=== PATIENT | male | born 1960 | race Two or more races ===

== ENCOUNTER 2016-11-28 13:16 | Inpatient (IN) | payer OTHER, SELFPAY ==
[~2016-11-28] VITALS: Ht 167.6 cm; Wt 86.8 kg
[2016-11-28] MEDS ORDERED: SODIUM CHLORIDE 0.9% 1,000ML IV ONE (14:00)
[2016-11-28] MEDS ORDERED: SODIUM CHLORIDE FLUSH 10ML SYR IVF ONE (14:00)
[2016-11-28 14:23] LABS: HEMATOCRIT 49.6 % (39.2-51.8); HEMOGLOBIN 16.8 g/dL (13.7-18.0); WHITE BLOOD COUNT 13.6 x10^3/uL (3.4-10)
[2016-11-28 14:41] LABS: ASPARTATE AMINO TRANSFERASE 23 U/L (15-37); BLOOD UREA NITROGEN 16 mg/dL (7-18)
[2016-11-28] MEDS ORDERED: MORPHINE SULFATE 4 MG/ML, 1ML ONE (15:29)
[2016-11-28] MEDS ORDERED: KETOROLAC 30 MG/1 ML IVPush ONE (15:30)
[2016-11-28] MEDS ORDERED: MORPHINE SULFATE 4 MG/ML, 1ML IVPush PRN (15:30)
[2016-11-28] MEDS ORDERED: HYDROmorphone 2 MG/ML, 1ML IVPush ONE (17:00)
[2016-11-28] MEDS ORDERED: CEFTRIAXONE PMX 1GM/50ML 50 ML IV ONE (17:00)
[2016-11-28] MEDS ORDERED: CEFTRIAXONE PMX 1GM/50ML 50 ML ONE (17:01)
[2016-11-28] MEDS ORDERED: HYDROmorphone 1 MG/ML, 1ML ONE (17:01)
[2016-11-28] MEDS ORDERED: BISACODYL 10 MG SUPP PR PRN (18:00)
[2016-11-28] MEDS ORDERED: ACETAMINOPHEN 325 MG TABLET PO PRN (18:00)
[2016-11-28] MEDS ORDERED: ONDANSETRON 2MG/ML, 2ML IVPush PRN (18:00)
[2016-11-28] MEDS: CEFTRIAXONE PMX 1GM/50ML 50 ML IV SCH (18:12)
[2016-11-28 18:29] VITALS: BP 135/86
[2016-11-28] MEDS: morphine SULFATE 10 MG/ML, 1ML IVPush PRN (19:34)
[2016-11-28] MEDS: SODIUM CHLORIDE 0.9% 1,000 ML IV SCH (19:35)
[2016-11-28 20:15] VITALS: BP 128/75
[2016-11-29 01:58] VITALS: BP 111/65
[2016-11-29] MEDS: SODIUM CHLORIDE 0.9% 1,000 ML IV SCH ×2 (05:03→14:44)
[2016-11-29 05:37] LABS: HEMATOCRIT 40.3 % (39.2-51.8); HEMOGLOBIN 13.5 g/dL (13.7-18.0); WHITE BLOOD COUNT 8.6 x10^3/uL (3.4-10)
[2016-11-29 06:02] LABS: ASPARTATE AMINO TRANSFERASE 12 U/L (15-37); BLOOD UREA NITROGEN 22 mg/dL (7-18)
[2016-11-29 06:38] VITALS: BP 97/62
[2016-11-29 12:56] VITALS: BP 106/69
[2016-11-29] MEDS: CEFTRIAXONE PMX 1GM/50ML 50 ML IV SCH (17:33)
[2016-11-29] MEDS ORDERED: FENTANYL PF 100 MCG/2ML ONE (18:18)
[2016-11-29] MEDS ORDERED: MIDAZOLAM 1 MG/ML, 2ML ONE (18:18)
[2016-11-29] MEDS ORDERED: PROPOFOL 10 MG/ML, 20ML ONE (18:21)
[2016-11-29] MEDS ORDERED: ACETAMINOPHEN 325 MG TABLET PO PRN (19:00)
[2016-11-29] MEDS ORDERED: OXYcodone 5 MG/5 ML ORAL.SOL UDC PO PRN (19:00)
[2016-11-29] MEDS ORDERED: HYDROmorphone 1 MG/ML, 1ML IV PRN (19:00)
[2016-11-29] MEDS ORDERED: MIDAZOLAM 1 MG/ML, 2ML IV PRN (19:00)
[2016-11-29] MEDS ORDERED: hydrALAzine 20 MG/ML, 1ML IV PRN (19:00)
[2016-11-29] MEDS ORDERED: DIAZEPAM 5 MG/ML, 2ML IVPush PRN (19:00)
[2016-11-29] MEDS ORDERED: PROMETHAZINE 25 MG/ML, 1ML IV PRN (19:00)
[2016-11-29] MEDS ORDERED: LABETALOL 5MG/ML, 20ML IV PRN (19:00)
[2016-11-29] MEDS ORDERED: FENTANYL PF 100 MCG/2ML IV PRN (19:00)
[2016-11-29] MEDS ORDERED: MEPERIDINE/PF 25MG/0.5ML IVPush PRN (19:00)
[2016-11-29] MEDS ORDERED: ONDANSETRON 2MG/ML, 2ML IVPush PRN (19:00)
[2016-11-29] MEDS ORDERED: OXYcodone 5 MG/5 ML ORAL.SOL UDC ONE (19:52)
[2016-11-29] MEDS ORDERED: ACETAMINOPHEN 650 MG/20.3 ML UDC ONE (19:52)
[2016-11-29] MEDS ORDERED: OMNIPAQUE 350 MG/ML, 50 ML BOTTLE ONE (19:55)
[2016-11-29 20:30] VITALS: BP 138/82
[2016-11-30] MEDS: morphine SULFATE 10 MG/ML, 1ML IVPush PRN (00:30)
[2016-11-30] MEDS: SODIUM CHLORIDE 0.9% 1,000 ML IV SCH ×3 (00:31→23:50)
[2016-11-30 01:38] VITALS: BP 106/67
[2016-11-30 05:50] LABS: HEMOGLOBIN 13.5 g/dL (13.7-18.0); WHITE BLOOD COUNT 6.8 x10^3/uL (3.4-10)
[2016-11-30 05:59] LABS: BLOOD UREA NITROGEN 16 mg/dL (7-18)
[2016-11-30 07:28] VITALS: BP 138/78
[2016-11-30] MEDS ORDERED: MAGNESIUM SULFATE PMX 2GM/50ML 50 ML IV ONE (09:00)
[2016-11-30 15:09] VITALS: BP 139/82
[2016-11-30] MEDS: CEFTRIAXONE PMX 1GM/50ML 50 ML IV SCH (17:55)
[2016-11-30 20:05] VITALS: BP 143/84
[2016-12-01 01:08] VITALS: BP 130/84
[2016-12-01 06:15] LABS: BLOOD UREA NITROGEN 15 mg/dL (7-18)
[2016-12-01 06:56] VITALS: BP 136/85
[2016-12-01] MEDS ORDERED: MAGNESIUM SULFATE PMX 2GM/50ML 50 ML IV ONE (07:30)
[2016-12-01] MEDS ORDERED: CEFD300C37 PO (08:02)
[2016-12-01] MEDS: SODIUM CHLORIDE 0.9% 1,000 ML IV SCH (11:00)
== END 2016-12-01 12:42 | disposition home or self-care (01) | DRG 694 ==
LOC: ED 16:53 → 3NE 17:56
PROVIDERS: ADMIT Hospitalist; ATTEND Hospitalist
PROC: BT1F1ZZ Fluoroscopy of Left Kidney, Ureter and Bladder using Low Osmolar Contrast (ICD-10-PCS; 2016-11-29)
PROC: 0T788DZ Dilation of Bilateral Ureters with Intraluminal Device, Via Natural or Artificial Opening Endoscopic (ICD-10-PCS; principal; 2016-11-29 17:30)
DX: N13.2 Hydronephrosis with renal and ureteral calculous obstruction (principal); N17.9 Acute kidney failure, unspecified; N20.2 Calculus of kidney with calculus of ureter; N18.9 Chronic kidney disease, unspecified; N39.0 Urinary tract infection, site not specified; Z87.442 Personal history of urinary calculi; Z87.891 Personal history of nicotine dependence
CPT/HCPCS: 36415; 74176; 74420; 76770; 80048; 80053; 81001; 82040; 83605; 83735; 84100; 85025; 87040; 87086; 87147; 96361; 96365; 96375; J0696; J1170; J2250; J2704; J3010; Q9967; C1758; C1769; C2617; J2270; J3475; J7030

== ENCOUNTER → 2016-12-23 | Outpatient (CLI) | payer OTHER ==
[~2016-12-23] VITALS: Ht 170.2 cm; Wt 82.4 kg
[~2016-12-23] MED LIST: CEFD300C37 PO; CEFU250T66 PO; HYDR-3237 PO; LACTATED RINGERS 1,000 ML IV SCH; PHEN-582 PO; SENN1TAB67 PO; TAMS0.4C2 PO
[2016-12-23 10:21] LABS: PATH.CAST-FLAG NOT PRESENT; SPERM-FLAG NOT PRESENT; SRC-FLAG NOT PRESENT; XTAL-FLAG NOT PRESENT; YLC-FLAG NOT PRESENT
[2016-12-26 16:05] VITALS: BP 140/101
== END | disposition home or self-care (01) ==
LOC: STAR 09:00 → OR 12-26 15:22 → EDSTATUS 12-26 17:00 → OR 12-26 17:11
PROVIDERS: ATTEND Urology
DX: Z01.812 Encounter for preprocedural laboratory examination (principal); N20.0 Calculus of kidney
CPT/HCPCS: 81001; 87086; J7120

== ENCOUNTER 2020-01-28 13:54 | Emergency (ER) | payer OTHER ==
[~2020-01-28] VITALS: Ht 175.3 cm; Wt 89.6 kg
[~2020-01-28 13:54] MED LIST changes: -LACTATED RINGERS 1,000 ML IV SCH
--- NOTE | 2020-01-28 14:43 | NUR ---
PT TO ROOM AT THIS TIME. WORK OF BREATHING INCREASED AFTER AMBULATION TO ROOM. PT DENIES MEDICAL HISTORY OTHER THAN GOUT. STARTED GETTING SHORT OF BREATH MONDAY. NO SICK CONTACTS.
[2020-01-28] MEDS ORDERED: ACETAMINOPHEN 500 MG TABLET ONE (14:53)
[2020-01-28] MEDS ORDERED: ACETAMINOPHEN 500 MG TABLET PO ONE ×2 (15:00→16:00)
--- NOTE | 2020-01-28 15:26 | NUR ---
REPORT RECEIVED FROM MARYANN JAFFE ASSUMING PRIMARY CARE OF PT. PT LYING ON GURNEY. NO C/O PAIN OR DISCOMFORT. RN TO RECHECK PT'S TEMPERATURE AFTER ADMINISTRATION OF TYLENOL BY MARYANN JAFFE. NO NEEDS AT THIS TIME. RN TO CONTINUE TO MONITOR.
[2020-01-28 15:50] LABS: RAPID INFLUENZA A Negative (Negative); RAPID INFLUENZA B Negative (Negative)
[2020-01-28 16:17] LABS: MEAN CORPUSCULAR HEMOGLOBIN 30.6 pg (27.5-34.5); MEAN PLATELET VOLUME 9.4 fL (7.4-10.4); PLATELET COUNT 161 x10^3/uL (130-400); RED BLOOD COUNT 5.15 x10^6/uL (4.38-5.82); RED CELL DISTRIBUTION WIDTH 13.6 % (9.4-14.8)
[2020-01-28 16:18] LABS: PLATELET (DIC) 163 x10^3/uL (130-400)
[2020-01-28 16:19] LABS: ALANINE AMINOTRANSFERASE 14 U/L (12-78); ALBUMIN 3.9 g/dL (3.4-5.0); ANION GAP 5 mmol/L (5-15); CALCIUM 7.8 mg/dL (8.5-10.1); CHLORIDE 100 mmol/L (98-107); CREATININE 1.51 mg/dL (0.7-1.3)
[2020-01-28 16:24] LABS: ALKALINE PHOSPHATASE 74 U/L (45-117); BILIRUBIN,TOTAL 0.6 mg/dL (0.2-1.0); C-REACTIVE PROTEIN, QUANT 1.21 mg/dL (0.02-0.49); TOTAL PROTEIN 7.4 g/dL (6.4-8.2)
[2020-01-28 16:42] LABS: D-DIMER (DIC) < 0.19 ug/mlFEU (0.00-0.52); FIBRINOGEN 338 mg/dL (200-340); PROTIME 10.9 Seconds (9.6-11.5); PTT 30 Seconds (25-31)
[2020-01-28 17:04] LABS: MD YES
[2020-01-28 17:07] LABS: BAND#(MANUAL) 2.18 x10^3/uL; BANDS%(MANUAL) 32 % (0-7); BASOS#(MANUAL) 0.07 x10^3/uL (0-0.1); BASOS% (MANUAL) 1 % (0-1); LYMPH#(MANUAL) 0.27 x10^3/uL (1-3.4); LYMPHS% (MANUAL) 4 % (22-44); METAMYELOCYTES# (MANUAL) 0.14 x10^3/uL (0-0); METAMYELOCYTES% (MANUAL) 2 % (0-1); MONOS#(MANUAL) 0.14 x10^3/uL (0.3-2.7); MONOS% (MANUAL) 2 % (2-9); SEG#(MANUAL) 4.01 x10^3/uL (1.8-6.8); SEGS% (MANUAL) 59 % (42-75)
[2020-01-28 17:08] LABS: <PLATELET ESTIMATE> ADEQUATE; <PLT MORPHOLOGY> NORMAL PLT MORPH; <RBC MORPHOLOGY> NORMAL
--- NOTE | 2020-01-28 17:40 | NUR ---
PT NEEDING TO VOID. RN UNHOOKED PT FROM THE MONITOR. PT AMBULATED TO THE RESTROOM WITH A STEADY GAIT.
[2020-01-28] MEDS ORDERED: CEFTRIAXONE PMX 1GM/50ML 50 ML IVPB ONE (18:00)
[2020-01-28] MEDS ORDERED: AZITHROMYCIN 500 MG in SODIUM CHLORIDE 0.9% 250 ML IV ONE (18:00)
[2020-01-28] MEDS ORDERED: CEFTRIAXONE PMX 1GM/50ML 50 ML ONE (18:01)
--- NOTE | 2020-01-28 18:06 | NUR ---
2/2 BLOOD CULTURES DRAWN. 1/2 ABX ADMINISTERED PER EMAR. PINK SEPSIS WORKSHEET STARTED. RN TO DISCUSS POC WITH SATISH.
--- NOTE | 2020-01-28 18:46 | NUR ---
OKAY BY SATISH TO ORDER PT DINNER.
--- NOTE | 2020-01-28 19:04 | NUR ---
REPORT TO MARYANN QUINTEROS TO ASSUME PRIMARY CARE OF PT.
[2020-01-28 19:44] VITALS: BP 139/90
--- NOTE | 2020-01-28 19:55 | NUR ---
Patient/Caregiver given discharge instructions and they have confirmed that they understand the instructions. Patient ambulatory with steady gait.
== END 2020-01-28 20:09 | disposition home or self-care (01) ==
LOC: ED 18:16
DX: U07.1 COVID-19 (principal); J12.89 Other viral pneumonia; R00.0 Tachycardia, unspecified; B34.9 Viral infection, unspecified; M79.10 Myalgia, unspecified site; Z87.891 Personal history of nicotine dependence
CPT/HCPCS: 71045; 80053; 82728; 83605; 83615; 84145; 85025; 85049; 85379; 85384; 85610; 85730; 86140; 87040; 87400; 87635; 93005; 96365; 96367; 99285; J0456; J0696; J7050

== ENCOUNTER 2020-01-29 22:41 | Emergency (ER) | payer OTHER ==
[~2020-01-29] VITALS: Ht 167.6 cm; Wt 87.5 kg
[2020-01-29 23:20] LABS: BASOPHILS % (AUTO) 1 % (0-1); EOSINOPHILS % (AUTO) 0 % (1-7); LYMPHOCYTES % (AUTO) 18 % (22-44); MEAN CORPUSCULAR HGB CONC 34.6 g/dL (33.2-36.2); MEAN PLATELET VOLUME 9.1 fL (7.4-10.4); MONOCYTES % (AUTO) 8 % (2-9); NEUTROPHILS % (AUTO) 72 % (42-75); PLATELET COUNT 166 x10^3/uL (130-400); RED BLOOD COUNT 5.15 x10^6/uL (4.38-5.82); RED CELL DISTRIBUTION WIDTH 13.5 % (9.4-14.8)
[2020-01-29 23:21] LABS: MD NO
[2020-01-29 23:36] LABS: ALANINE AMINOTRANSFERASE 16 U/L (12-78); ALKALINE PHOSPHATASE 64 U/L (45-117); ANION GAP 8 mmol/L (5-15); BILIRUBIN,TOTAL 0.5 mg/dL (0.2-1.0); CALCIUM 7.7 mg/dL (8.5-10.1); CHLORIDE 100 mmol/L (98-107); CREATININE 1.67 mg/dL (0.7-1.3)
[2020-01-29 23:37] LABS: ALBUMIN 3.8 g/dL (3.4-5.0); TOTAL PROTEIN 7.4 g/dL (6.4-8.2)
--- NOTE | 2020-01-30 00:29 | NUR ---
CHIEF CREDIT OFFICER: PT. TO ROOM FROM LOBBY AT THIS TIME.
[2020-01-30] MEDS ORDERED: PANTOPRAZOLE 20MG TABLET PO ONE (01:00)
[2020-01-30] MEDS ORDERED: FAMOTIDINE 20 MG TABLET PO ONE (01:00)
[2020-01-30] MEDS ORDERED: ACETAMINOPHEN 500 MG TABLET PO ONE (01:00)
[2020-01-30] MEDS ORDERED: PANTOPRAZOLE 20MG TABLET ONE (01:02)
[2020-01-30] MEDS ORDERED: FAMOTIDINE 20 MG TABLET ONE (01:02)
[2020-01-30] MEDS ORDERED: ACETAMINOPHEN 500 MG TABLET ONE (01:03)
[2020-01-30 01:13] VITALS: BP 134/85
== END 2020-01-30 01:23 | disposition home or self-care (01) ==
LOC: ED 23:11
DX: U07.1 COVID-19 (principal); K29.00 Acute gastritis without bleeding; J18.9 Pneumonia, unspecified organism; K21.9 Gastro-esophageal reflux disease without esophagitis; R51.9 Headache, unspecified; R00.0 Tachycardia, unspecified; Z87.891 Personal history of nicotine dependence
CPT/HCPCS: 36415; 80053; 83690; 85025; 93005; 99284

== ENCOUNTER 2020-02-14 10:15 | Emergency (ER) | payer OTHER ==
[~2020-02-14] VITALS: Ht 167.6 cm; Wt 82.7 kg
[2020-02-14 10:25] VITALS: BP 128/85
--- NOTE | 2020-02-14 10:42 | NUR ---
Pt here for recheck of covid test to return to work. Pt has no complaints, occasional intermittent dry cough. vss. SATISH Flood at bedside for evaluation.
--- NOTE | 2020-02-14 10:44 | NUR ---
Discharge instructions reviewed.
== END 2020-02-14 11:09 | disposition home or self-care (01) ==
LOC: ED 11:01
DX: B34.9 Viral infection, unspecified (principal); Z20.828 Contact with and (suspected) exposure to other viral communicable diseases; J06.9 Acute upper respiratory infection, unspecified; R05 Cough; Z87.891 Personal history of nicotine dependence
CPT/HCPCS: 87635; 99283